=== PATIENT | female | born 1985 | race Caucasian/White ===

== ENCOUNTER 2020-01-23 23:04 | Emergency (ER) | payer OTHER, SELFPAY ==
--- NOTE | ~2020-01-23 | XR_ITS ---
XR finger 2nd RT min 2V 01/23/2020 23:37 INDICATION: Laceration of the second finger PROCEDURE: 4 views right second finger COMPARISON: No prior studies for comparison. FINDINGS: Fracture, dislocation or subluxation is not identified. The soft tissues appear within norm al limits. No foreign bodies are identified. IMPRESSION: 1: NO ACUTE BONE OR JOINT ABNORMALITY IDENTIFIED. Reviewed, dictated and finalized at location A.
[2020-01-23 23:07] VITALS: BP 118/87; PULSE 89; RESP 19; TEMP 36.3; O2SAT 99
--- NOTE | 2020-01-23 23:41 | ED.WOUNDLAC ---
HPI - Wound/Laceration General Chief Complaint: Wound/Laceration Stated Complaint: Laceration Time Seen by Provider: 01/23/20 23:22 Source: patient Mode of arrival: ambulatory Limitations: no limitations History of Present Illness HPI narrative: This patient is a 35 year old female who presents for evaluation of right index finger laceration. She accidentally closed her finger a door and it caused 2 wounds to her finger. She took 1 hydrocodone before coming. She is unsure of her tetanus. She has pain with movement. Related Data Allergies Allergy/AdvReac Type Severity Reaction Status Date / Time ibuprofen Allergy Severe rash Verified 09/07/17 12:30 shellfish derived Allergy Unknown Hives / Verified 09/07/17 12:30 Red Face Review of Systems Review of Systems: All systems reviewed & are unremarkable except as noted in HPI and below PMFSH Past Medical History Medical History (Updated 01/24/20 @ 00:51 by Anna Beckett MD) Patient denies medical problems Social History Social History (Updated 01/24/20 @ 00:46 by Anna Beckett MD) Smoking status: Current every day smoker Exam Const: General: no acute distress and alert Orientation/consciousness: patient oriented x3 Resp: Effort & Inspection: normal respiratory effort Neuro: General: patient oriented x3 and moves all extremities Extrem: Other: right index finger with 1 cm laceration mid finger with fat tissue exposed on palmar aspect with 0.5 cm volar Psych: Mental Status: mental status grossly normal Affect: normal affect Course Vital Signs Vital signs: Vital Signs Temperature 97.4 F L 01/23/20 23:07 Pulse Rate 89 01/23/20 23:07 Respiratory Rate 19 01/23/20 23:07 Blood Pressure 118/87 01/23/20 23:07 Pulse Oximetry 99 01/23/20 23:07 Temperature 97.4 F L 01/23/20 23:07 Pulse Rate 89 01/23/20 23:07 Respiratory Rate 19 01/23/20 23:07 Blood Pressure 118/87 01/23/20 23:07 Pulse Oximetry 99 01/23/20 23:07 Procedures Laceration Laceration 1: Date: 01/24/20 Time: 00:47 Site: hand (finger index ) Side (If applicable): right Size (cm): 1 Description: linear Depth: simple, single layer Local Anesthetic: bupivacaine 0.25% (digital nerve block) Amount of anesthesia used (mL): 2 Pre-repair: irrigated ====== Skin Level ====== Skin layer closed with: prolene Size (cm): 4-0 Number of sutures: 2 Technique: horizontal mattress ====== Subcutaneous Layer ====== ====== Muscle Layer ====== ====== Tendon Layer ====== Laceration 2: Date: 01/24/20 Time: 00:48 Site: hand (finger index) Side (If applicable): right Size (cm): 0.5 Description: linear Depth: simple, single layer Pre-repair: irrigated ====== Skin Level ====== Skin layer closed with: prolene Size (cm): 4-0 Number of sutures: 2 Technique: simple, interrupted and horizontal mattress ====== Subcutaneous Layer ====== ====== Muscle Layer ====== ====== Tendon Layer ====== MDM - Wound/Laceration Imaging Data Radiologist's impression: ITS Impressions Finger X-Ray 01/23/20 23:39 IMPRESSION: 1: NO ACUTE BONE OR JOINT ABNORMALITY IDENTIFIED. Discharge Plan Discharge Clinical Impression: Laceration of right index finger Qualifiers: Encounter type: initial encounter Damage to nail status: without damage Foreign body presence: without foreign body Qualified Code(s): S61.210A - Laceration without foreign body of right index finger without damage to nail, initial encounter Patient Disposition: Home, Self-Care Condition: Stable Instructions: Care For Your Stitches (ED), Laceration (ED) Additional Instructions: Today you were seen for an couple of lacerations. You will need keep hand clean and dry. Watch for si
[2020-01-23] MEDS: TETANUS,DIPHTHERIA,AC PERTUSSIS ADULT (0.5 ML) BOOSTRIX IM (23:53)
[2020-01-24 01:13] VITALS: BP 120/70; PULSE 70; RESP 18; O2SAT 98
== END 2020-01-24 01:14 | disposition home or self-care (01) ==
PROVIDERS: Emergency Provider General Practice; PCP Family Medicine
DX: S61.210A Laceration without foreign body of right index finger without damage to nail, initial encounter (principal); Z23 Encounter for immunization; F17.200 Nicotine dependence, unspecified, uncomplicated; W23.0XXA Caught, crushed, jammed, or pinched between moving objects, initial encounter
CPT/HCPCS: 12001; 73140; 90471; 90715; 99283

== ENCOUNTER 2020-08-18 17:39 | Emergency (ER) | payer OTHER, SELFPAY ==
--- NOTE | ~2020-08-18 | XR_ITS ---
EXAMINATION: XR chest 2V EXAM DATE: 08/18/2020 19:09 INDICATION: Left-sided chest pain. Toothache. TECHNIQUE: Frontal and lateral projections of the chest obtained and reviewed. Comparison is made to prior examination from 09/07/2017. FINDINGS: The lungs are clear. There are no pleural effusions. The cardiomediastinal silhouette is within normal limits. There is no pneumothorax suspected. The bones and soft tissues are unremarkab le. IMPRESSION: No acute cardiopulmonary findings. Reviewed, dictated and finalized at location A. [facility]
[2020-08-18 17:41] VITALS: BP 123/83; PULSE 77; RESP 18; TEMP 36.5; O2SAT 94
--- NOTE | 2020-08-18 17:48 | ECG_ITS ---
Measurements Intervals [place] Rate: 67 P: 12 VA: 130 QRS: -26 QRSD: 112 T: 6 QT: 365 QTc: 387 Interpretive Statements SINUS RHYTHM INCOMPLETE RIGHT BUNDLE BRANCH BLOCK DELAYED PRECORDIAL R/S TRANSITION BORDERLINE T WAVE ABNORMALITY- INFERIOR LEADS BASELINE ARTIFACT- I, II, AVR BORDERLINE ECG Electronically Signed On 08-18-2020 21:37:41 [employer]IE[employer] by Brannon Sno D.O.
[2020-08-18 18:07] LABS: Basophils Percent Auto 0.3 % (0.2-1.2); Eosinophils Absolute Auto 0.1 K/mm3 (0-0.3); Eosinophils Percent Auto 0.8 % (0-4.4); Hematocrit 42.2 % (37.0-47.0); Hemoglobin 14.4 g/dL (12.0-15.0); Immature Granulocyte Absolute 0.03 K/mm3 (0.00-0.031); Immature Granulocyte Percent A 0.4 % (0-0.5); Lymphocytes Absolute Auto 2.76 K/mm3 (0.9-3.2); Lymphocytes Percent Auto 37.6 % (18.3-44.2); Mean Corpuscular HGB Conc 34.1 g/dl (32-36); Mean Corpuscular Hemoglobin 29.3 pg (26-34); Mean Corpuscular Volume 85.9 fl (80-100); Mean Platelet Volume 8.7 fl (7.4-10.4); Monocytes Absolute Auto 0.5 K/mm3 (0.1-0.6); Monocytes Percent Auto 7.1 % (2.6-8.5); Neutrophils Percent Auto 53.8 % (45.5-73.1); Platelet Count Result 275 k/mm3 (150-375); Red Blood Count 4.91 M/mm3 (4.2-5.4); Red Cell Distribution Width 12.1 % (11.5-14.5); White Blood Count 7.3 K/mm3 (4.5-10.0)
[2020-08-18 18:16] LABS: INR 0.9; Prothrombin Time 12.9 Seconds (11.1-14.7)
[2020-08-18 18:17] LABS: Partial Thromboplastin Time 29.8 SECONDS (22.3-36.8)
[2020-08-18 18:18] LABS: Anion Gap 9 mmol/L (8-16); Blood Urea Nitrogen 10 mg/dL (7-17); Calcium 9.7 mg/dL (8.4-10.2); Carbon Dioxide 28 mmol/L (22-30); Chloride 102 mmol/L (98-107); Estimated CRCL calculation 85 ml/min; Estimated Glomerular Filt Rate > 60; Glucose 112 mg/dL (65-105); Potassium 3.8 mmol/L (3.4-5.0); Sodium 139 mmol/L (137-145)
[2020-08-18 18:30] LABS: Troponin I < 0.012 ng/mL (0.000-0.034)
[2020-08-18] MEDS: diazePAM INJ (*CRX) 10 MG/2 ML SYRINGE 5 MG IV PUSH (18:43)
--- NOTE | 2020-08-18 18:59 | ED.CHESTPAIN ---
HPI - Chest Pain General Chief Complaint: Chest Pain Stated Complaint: toothache shoulder pain and sob Time Seen by Provider: 08/18/20 17:58 Source: patient and family Mode of arrival: ambulatory Limitations: no limitations History of Present Illness HPI narrative: This is a 35 year old female that presents to the ER for toothache since this morning. Reports the pain has now radiated into her head and ear. Also reports on her way to the ER she started to develop left sided chest pain. Denies fever, cough, or shortness of breath. Related Data Allergies Allergy/AdvReac Type Severity Reaction Status Date / Time ibuprofen Allergy Severe rash Verified 09/07/17 12:30 shellfish derived Allergy Unknown Hives / Verified 09/07/17 12:30 Red Face Review of Systems Review of Systems: Narrative: CONSTITUTIONAL: Denies fever ENT: Reports dentalgia CARDIOVASCULAR: Reports chest pain. Denies edema. RESPIRATORY: Denies cough or dyspnea. All systems reviewed & are unremarkable except as noted in HPI and below PMFSH Past Medical History Medical History (Updated 08/18/20 @ 20:01 by Becky Rodriguez PA-C) Patient denies medical problems Surgical History Surgical History (Updated 08/18/20 @ 19:02 by Becky Rodriguez PA-C) History of appendectomy Social History Social History (Updated 01/24/20 @ 00:46 by Anna Beckett MD) Smoking status: Current every day smoker Exam Narrative: Exam Narrative: GENERAL: Well-appearing, well-nourished, and in no acute distress. HEAD: Normocephalic, atraumatic. EYES: PERRLA and EOMI. ENT: Nares clear, no rhinorrhea or epistaxis. Mucous membranes moist. Oropharynx without tonsillar hypertrophy exudate or other lesions. Bilateral TMs pearly mccrary non-bulging. Tooth number 14 tender to palpation, no surrounding erythema or edema to suggest abscess NECK: Supple. No adenopathy or masses. Tender to palpation of left trapezius musculature CHEST: Clear to auscultation. No respiratory distress. No wheezes rales or rhonchi HEART: Regular rate and rhythm. No murmur heard. Normal peripheral pulses. EXTREMITIES: Normal range of motion. No edema. SKIN: Warm, dry, no rash. NEURO: No focal deficits. Alert and oriented x3. PSYCH: Normal mood and affect Course Vital Signs Vital signs: Vital Signs Temperature 97.7 F 08/18/20 17:41 Pulse Rate 77 08/18/20 17:41 Respiratory Rate 18 08/18/20 17:41 Blood Pressure 123/83 08/18/20 17:41 Pulse Oximetry 94 08/18/20 17:41 Temperature 97.7 F 08/18/20 17:41 Pulse Rate 82 08/18/20 19:16 Respiratory Rate 18 08/18/20 17:41 Blood Pressure 123/83 08/18/20 17:41 Pulse Oximetry 94 08/18/20 17:41 MDM - Chest Pain MDM Narrative Medical decision making narrative: Patient presents to the emergency department for toothache. Was reporting the pain started radiating into her shoulders and then into her chest. Reports relief of pain with Valium. She is afebrile and nontoxic-appearing. Vitals are normal. CBC and metabolic panel without concerning findings. EKG is without concerning changes and baseline troponin is negative. Chest x-ray is clear. Patient's heart score is a 1. Pain in the chest likely more musculoskeletal in nature. Patient will be started on antibiotics for dental infection and was instructed to follow-up with the dentist. She was given warnings to return to the ER. Was also instructed to follow-up with a primary doctor Lab Data Attestation: I reviewed the patient's lab results. Result diagrams: 08/18/20 18:01 08/18/20 18:01 Labs: Lab Results 08/18/20 08/18/20 08/18/20 Range/Units 18:01 18:01 18:01 WBC 7.3 (4.5-10.0) K/mm3 RBC 4.91 (4.2-5.4) M/mm3 Hgb 14.4 (12.0-15.0) g/dL Hct 42.2 (37.0-47.0) % MCV 85.9 (80-100) fl MCH 29.3 (26-34) pg MCHC 34.1 (32-36) g/dl RDW 12.1 (11.5-14.5) % Plt Count 275 (150-375) k/mm3 MPV 8.7 (7.4-10.4
[2020-08-18 19:16] VITALS: PULSE 82
[2020-08-18 20:10] VITALS: BP 142/68; PULSE 85; RESP 17; O2SAT 99
== END 2020-08-18 20:10 | disposition home or self-care (01) ==
PROVIDERS: Emergency Medicine; Emergency Provider Emergency Medicine
DX: K08.89 Other specified disorders of teeth and supporting structures (principal); R07.89 Other chest pain; I45.10 Unspecified right bundle-branch block; R94.31 Abnormal electrocardiogram [ECG] [EKG]
CPT/HCPCS: 36415; 71046; 80048; 84484; 85025; 85610; 85730; 93005; 96374; 99284; J3360

== ENCOUNTER 2021-02-18 16:26 | Emergency (ER) | payer OTHER, SELFPAY ==
[2021-02-18 16:37] VITALS: BP 102/72; PULSE 78; RESP 20; TEMP 36.4; O2SAT 100
[2021-02-18 16:42] VITALS: BP 102/72; PULSE 78; RESP 20; TEMP 36.4; O2SAT 100
--- NOTE | 2021-02-18 16:55 | ED.DENTAL ---
HPI - Dental/Oral General Chief complaint: Dental/Oral Stated complaint: tooth pain Time Seen by Provider: 02/18/21 16:55 Source: patient and RN notes reviewed Mode of arrival: ambulatory Limitations: no limitations History of Present Illness HPI Narrative: 36-year-old female presents to the [facility] with complaints of dental pain. Patient states that her right lower posterior molar pain started and states it feels like there is a lump in there on Thursday. Took 4 doses of Augmentin she had leftover . Made an appointment with [facility] in [place] for April 06 but states she cannot take the pain anymore. Has tried Tylenol due to her reaction to ibuprofen. Related Data Home Medications Medication Instructions Recorded Confirmed No Home Medications 02/18/21 02/18/21 Allergies Allergy/AdvReac Type Severity Reaction Status Date / Time ibuprofen Allergy Severe rash Verified 02/18/21 16:40 shellfish derived Allergy Unknown Hives / Verified 02/18/21 16:40 Red Face Review of Systems Review of Systems: All systems reviewed & are unremarkable except as noted in HPI and below Constitutional: Constitutional: Reports no additional constitutional complaints, Denies chills and Denies fever(s) Eyes: Eyes: Reports no additional eye complaints ENT: Reports as per HPI Comments: Right lower dental pain posterior Cardiovascular: Cardiovascular: Reports no additional cardiovascular complaints and Denies chest pain Respiratory: Respiratory: Reports no additional respiratory complaints and Denies cough Gastrointestinal: Gastrointestinal: Reports no additional gastrointestinal complaints Genitourinary: Genitourinary: Reports no additional female genitourinary complaints Musculoskeletal: Musculoskeletal: Reports no additional musculoskeletal complaints Integumentary/Breasts: Skin/Breast: Reports system reviewed and no additional complaints, except as docu Neurologic: Reports system reviewed and no additional complaints, except as documented Psychiatric: Psychiatric: Reports no additional psychiatric complaints Allergic/Immunologic: Allergic/Immunologic: Reports no additional allergic/immunologic complaints [facility] Past Medical History Medical History Patient denies medical problems Surgical History Surgical History History of appendectomy Social History Social History Smoking status: Current every day smoker Comments At the time of my signature, I reviewed and agree with the nursing past medical, surgical, social, and family history. There is no relevant family history pertinent to the patient complaint. Exam Const: Nutritional Appearance: well nourished Orientation/consciousness: patient oriented x3 HENMT: Head: normal to inspection Teeth image: 1. Pain minor swelling tenderness with palpation to this area. Throat: posterior oropharynx normal, tonsils normal and uvula midline Eyes: Conjunctivae: conjunctivae normal Pupils: Equal, round and reactive pupils present Neck: Neck: normal visual inspection, no lymphadenopathy and no meningeal signs Chest: Chest palpation & inspection: normal inspection of the chest Resp: Effort & Inspection: normal respiratory effort Auscultation: clear to auscultation bilaterally Cardio: Rate: regular rate Rhythm: regular rhythm : General: Yes no CVA tenderness Back/Spine/Pelvis: Back: no CVA tenderness Skin: General skin exam: normal color Rashes: no rashes Wounds: no wounds Neuro: General: patient oriented x3, moves all extremities, no meningeal signs and no focal motor deficits Speech: normal speech Gait exam (Neuro): Normal gait present Extrem: General: normal to inspection and no pedal edema Psych: Appearance: grossly normal and well kempt Mental Status: mental status grossly normal Af
== END 2021-02-18 17:12 | disposition home or self-care (01) ==
PROVIDERS: Emergency Provider Nurse Practitioner
DX: K08.89 Other specified disorders of teeth and supporting structures (principal)
CPT/HCPCS: 99213; G0463

== ENCOUNTER 2021-05-30 15:31 | Emergency (ER) | payer OTHER, SELFPAY ==
[2021-05-30 15:52] VITALS: BP 141/92; PULSE 62; RESP 20; TEMP 37.1; O2SAT 99
--- NOTE | 2021-05-30 16:26 | ED.DENTAL ---
HPI - Dental/Oral General Chief complaint: Dental/Oral Stated complaint: toothache Source: patient and RN notes reviewed Limitations: no limitations History of Present Illness HPI Narrative: The patient, previously mostly healthy non-smoker/occasional drinker, presents with left lower tooth ache. Patient states she has a prior fracture to the affected tooth; now she has a couple day history of left sided upper pain. Symptoms are mild, worse eating; no fever, hoarseness, trismus, visible swelling, pharynx/tonsil pain. Related Data Home Medications Medication Instructions Recorded Confirmed sertraline 50 mg PO DAILY 05/30/21 05/30/21 Allergies Allergy/AdvReac Type Severity Reaction Status Date / Time ibuprofen [From Motrin] Allergy Hives Verified 05/30/21 16:33 Review of Systems Review of Systems: General/Constitutional: No weight loss,fever Eyes: N0: Redness,discharge Ears/Nose/Throat: No: Epistaxis,ear discharge Respiratory: Denies: Hemoptysis Gastrointestinal: No Vomiting, Bleeding-rectal Skin: No Lumps, eruption Neurologic: No Focal Weakness,Sz Hematologic: Denies: Petechiae/Purpura Psychiatric: No: Suicida ideationl All Other Systems: Reviewed and Negative [facility] Family History Family History (Updated 01/25/16 @ 23:19 by DOCTOR UNKNOWN) Mother Family history of malignant neoplasm of breast in first degree relative Social History Social History Smoking status: Never smoker Alcohol intake: current Comments At time of signature, agree with nursing past medical, surgical, social and family history. There is no relevant family history pertinent to the presenting complaint Exam Narrative: General Appearance: Well appearing, Well nourished, Obese EYE: PERRLA, EOMI, Conjunctiva clear Ears: External ear normal, Auditory canal normal Nose: Normal nose Mouth/Throat: Normal appearing (witout lower jaw swelling), Normal lips, MM moist, Uvula midline (scattered dental caries and fillings,, with rare fracture) Neck: Supple, No adenopathy Respiratory: Airway patent, No respiratory distress, Clear to auscultation Cardiovascular: RRR Musculoskeletal: Full ROM, Non tender, Normal strength Spine/Back: Normal ROM Skin: Warm, Dry, Normal color Neurological: A&O x3, Speech clear, CN II-XII intact Psychiatric: Normal mood, Normal affect Course Vital Signs Vital signs: Vital Signs Temperature 98.7 F 05/30/21 15:52 Pulse Rate 62 05/30/21 15:52 Respiratory Rate 20 05/30/21 15:52 Blood Pressure 141/92 H 05/30/21 15:52 Pulse Oximetry 99 05/30/21 15:52 Temperature 98.7 F 05/30/21 15:52 Pulse Rate 62 05/30/21 15:52 Respiratory Rate 20 05/30/21 15:52 Blood Pressure 141/92 H 05/30/21 15:52 Pulse Oximetry 99 05/30/21 15:52 Discharge Plan Discharge Clinical Impression: Gingivitis, Toothache Patient Disposition: Home, Self-Care Condition: Stable Instructions: Gingivitis (ED), Toothache (ED) Prescriptions: New amoxicillin 875 mg tablet 875 mg PO Q12H Qty: 14 RF: 0 lidocaine HCl [Lidocaine Viscous] 2 % solution 5 ml MUCOUS MEM QID PRN (Reason: pain) Qty: 100 RF: 2 tramadol 50 mg tablet 50 - 75 mg PO BID PRN (Reason: pain) Qty: 20 RF: 0 No Action sertraline 50 mg tablet 50 mg PO DAILY RF: 0 Follow-up/Referrals: Frankie,MD Carlos [Primary Care Provider] - Stand Alone Forms: Work/School Release IP
== END 2021-05-30 16:35 | disposition home or self-care (01) ==
PROVIDERS: Emergency Provider Emergency Medicine; PCP Family Medicine
DX: K05.10 Chronic gingivitis, plaque induced (principal)
CPT/HCPCS: 99203; G0463

== ENCOUNTER 2022-10-11 08:23 | Emergency (ER) | payer OTHER, SELFPAY ==
--- NOTE | 2022-10-11 08:34 | ED.GENADULT ---
HPI - General Adult General Chief complaint: Upper Respiratory Infection Stated complaint: Sore Throat/Left Ear Irritation/Diarrhea Source: patient and RN notes reviewed History of Present Illness HPI narrative: 37-year-old female presents to urgent care with complaints of a sore throat, left ear pain, vomiting, and diarrhea since last night. patient reports chills. States she vomited 4 times earlier this morning. Denies any fevers, abdominal pain, chest pain, or shortness of breath. Patient states she is now able to keep fluids down. Some parts of this dictation were generated by voice recognition software and may contain typographical and/or grammatical inaccuracies. Related Data Home Medications Medication Instructions Recorded Confirmed buspirone 10 mg tablet 10 mg PO DAILY 10/11/22 10/11/22 ergocalciferol (vitamin D2) 1,250 1,250 mcg PO DAILY 10/11/22 10/11/22 mcg (50,000 unit) capsule trazodone 50 mg tablet 50 mg PO DAILY 10/11/22 10/11/22 Allergies Allergy/AdvReac Type Severity Reaction Status Date / Time ibuprofen Allergy Severe rash Verified 10/11/22 08:36 shellfish derived Allergy Unknown Hives / Verified 10/11/22 08:40 Red Face Review of Systems Review of Systems: Pertinent positives and pertinent negatives per HPI. [facility] Past Medical History Medical History Patient denies medical problems Surgical History Surgical History History of appendectomy Family History Family History (System 09/05/21 @ 11:54 by [place]) Mother Family history of malignant neoplasm of breast in first degree relative Social History Social History (System 09/05/21 @ 11:54 by [place]) Smoking status: Current every day smoker Alcohol intake: current Comments At the time of my signature, I reviewed and agree with the nursing past medical, surgical, social, and family history. There is no relevant family history pertinent to the patient complaint. Exam Narrative: GENERAL: This is a well-nourished, well-developed patient, in no apparent distress. HEAD: normocephalic, atraumatic. EYES: Sclera clear/white. Vision is grossly intact. EARS: External ears normal, auditory canals clear and without drainage, TMs normal without perforation. Hearing grossly intact. NOSE: External nose normal with no obvious nasal discharge, nares without redness, no rhinorrhea. THROAT: Mucous membranes moist, posterior pharynx erythemic. No exudate noted. NECK: Neck supple, non-tender without lymphadenopathy, masses or thyromegaly. CARDIOVASCULAR: Regular rate RESPIRATORY: Clear to auscultation. Breath sounds equal bilaterally. No wheezes, rales, or rhonchi. GASTROINTESTINAL: Abdomen soft, non-tender, nondistended. Bowel sounds are active. No hepato-splenomegaly, or palpable masses. No guarding. SKIN: warm, intact with no suspicious lesions or rash, good texture and turgor. NEURO: awake, alert, and oriented to person, place and time. There were no obvious focal neurologic abnormalities. Course Course Level of Care: Express Care Visit Vital Signs Vital signs: Vital Signs Temperature 97.7 F 10/11/22 08:39 Pulse Rate 101 H 10/11/22 08:39 Respiratory Rate 14 10/11/22 08:39 Blood Pressure 133/90 10/11/22 08:39 Pulse Oximetry 100 10/11/22 08:39 Oxygen Delivery Room Air 10/11/22 08:39 Temperature 97.7 F 10/11/22 08:39 Pulse Rate 101 H 10/11/22 08:39 Respiratory Rate 14 10/11/22 08:39 Blood Pressure 133/90 10/11/22 08:39 Pulse Oximetry 100 10/11/22 08:39 Oxygen Delivery Room Air 10/11/22 08:39 reviewed Medical Decision Making MDM Narrative Medical decision making narrative: After 24 hours on antibiotics throw tooth brush away and start using a new one. Increase your Vitamin C. Do not share drinks. Take Motrin alternating with Tylenol for pain and/or fever a
[2022-10-11 08:39] VITALS: BP 133/90; PULSE 101; RESP 14; TEMP 36.5; O2SAT 100
== END 2022-10-11 09:13 | disposition home or self-care (01) ==
PROVIDERS: Emergency Provider Nurse Practitioner Family
DX: K52.9 Noninfective gastroenteritis and colitis, unspecified (principal); J02.0 Streptococcal pharyngitis; F17.200 Nicotine dependence, unspecified, uncomplicated
CPT/HCPCS: 87804; 87880; 99213; G0463

== ENCOUNTER 2022-10-28 10:17 | Outpatient (CLI) | payer OTHER, SELFPAY ==
--- NOTE | ~2022-10-28 | XR_ITS ---
Thoracic spine: Clinical Indication: Back pain AP and lateral views were performed. No fracture is seen. There is normal alignment of the vertebrae. The intervertebral disc spaces appe ar normal. Paravertebral soft tissues appear normal. Impression: No significant abnormalities noted. Reviewed, dictated and finalized at [facility]. Impression: No significant abnormalities noted.
--- NOTE | ~2022-10-28 | XR_ITS ---
Lumbosacral Spine: AP, oblique, and lateral views Clinical History: Pain Findings: The normal lordotic curve is maintained. The vertebral bodies and posterior elements are i ntact. The intervertebral disc spaces are preserved. The sacroiliac joints are normally outlined. Impression: No significant abnormality. Reviewed, dictated and finalized at [facility]. Impression: No significant abnormality.
== END 2022-10-28 10:18 | disposition home or self-care (01) ==
LOC: ANHIMG 10:25
PROVIDERS: PCP Family Medicine; Visit Provider Family Medicine
DX: M54.6 Pain in thoracic spine (principal); M54.50 Low back pain, unspecified
CPT/HCPCS: 72070; 72110

== ENCOUNTER 2023-07-05 18:41 | Emergency (ER) | payer OTHER, SELFPAY ==
--- NOTE | ~2023-07-05 | XR_ITS ---
EXAMINATION: XR wrist LT min 3V DATE: 07/05/2023 19:22 INDICATION: Left wrist pain TECHNIQUE: Posteroanterior, ulnar deviation, oblique, and lateral views of the left wrist were obtain ed. COMPARISON: None available FINDINGS: There is congenital deformity of the hand. A partially formed first metacarpal is noted. Roman ne alignment is normal. There is no fracture. There is mild soft tissue swelling of the wrist. IMPRESSION: 1. Mild soft tissue swelling of the wrist without acute osseous abnormality. Reviewed, dictated and finalized at location [facility]
[2023-07-05 18:58] VITALS: BP 126/80; PULSE 98; RESP 18; TEMP 36.7; O2SAT 98
--- NOTE | 2023-07-05 19:00 | ED.EXTPRO ---
HPI - Extremity Problem General Chief complaint: Extremity Injury, Lower Stated complaint: Right Knee/Left Hand Pain Time Seen by Provider: 07/05/23 19:01 Source: patient and RN notes reviewed Mode of arrival: ambulatory Limitations: no limitations History of Present Illness HPI Narrative: 38-year-old female presents with concern for right knee pain and left hand pain. She reports she was at work when she was accidentally pushed in to a table, hitting her knee and getting her left hand pinned between the chair and table. She reports knee pain that worsens with weight-bearing, popping sensation. She denies swelling, bruising, redness, warmth. She reports pain in the left hand/wrist. She reports she took Tylenol, used ice. She is allergic to ibuprofen MD Complaint: extremity pain Related Data Home Medications Medication Instructions Recorded Confirmed ergocalciferol (vitamin D2) 1,250 1,250 mcg PO DAILY 07/05/23 07/05/23 mcg (50,000 unit) capsule trazodone 50 mg tablet 50 mg PO QHS 07/05/23 07/05/23 Allergies Allergy/AdvReac Type Severity Reaction Status Date / Time ibuprofen Allergy Severe rash Verified 07/05/23 19:06 shellfish derived Allergy Unknown Hives / Verified 07/05/23 19:06 Red Face Review of Systems Review of Systems: CONSTITUTIONAL: Denies malaise, chills, sweats, or fever. SKIN: Denies rash or itching, open skin, laceration, abrasion, redness, warmth, swelling. MUSCULOSKELETAL: Reports left wrist pain, right knee pain NEUROLOGIC: Denies numbness, weakness All systems reviewed & are unremarkable except as noted in HPI and below PMFSH Past Medical History Medical History Patient denies medical problems Surgical History Surgical History History of appendectomy Family History Family History (System 09/05/21 @ 11:54 by Belle Fontaine) Mother Family history of malignant neoplasm of breast in first degree relative Social History Social History (System 09/05/21 @ 11:54 by Belle Fontaine) Smoking status: Current every day smoker Alcohol intake: current Comments At time of signature, agree with nursing past medical, surgical, social and family history. There is no relevant family history pertinent to the presenting complaint Exam Narrative: GENERAL: Well-appearing, well-nourished, and in no acute distress. HEAD: Normocephalic, atraumatic. EYES: PERRLA, conjunctivae clear NECK: Supple. CHEST: Speaks in full sentences. No respiratory distress. HEART: Regular rate and rhythm. Normal and equal peripheral pulses. EXTREMITIES: Right knee has normal strength and sensation, grossly normal range of motion. No edema or ecchymosis. Normal sensation with sensitivity to light touch and pain. No point tenderness. No open wounds, no skin tenting, no devitalized tissue or atrophy, no trophic changes, no obvious deformity, alignment normal, nearby joints and structures intact. Distal pulses palpable and equal bilaterally, skin warm, dry, pink. Capillary refill less than 3 seconds. Patient has a congenital deformity of the left hand/wrist. She has some mobility in the wrist. She reports pain when she flexes. She denies swelling, redness, warmth, bruising, open skin SKIN: Warm, dry, no rash. NEURO: Alert and oriented x3. PSYCH: Normal mood and affect Course Course Emergency Course: Patient is aware of diagnosis, understands and agrees to treatment plan. Anticipatory guidance given. Patient agrees to follow-up as directed and is aware of reasons to seek care at the emergency department. Portions of this record may have been created with voice recognition software Level of Care: Express Care Visit Vital Signs Vital signs: Vital Signs Temperature 98.1 F 07/05/23 18:58 Pulse Rate 98 07/05/23 18:58 Respiratory Rate 18 07/05/23 18:58 Blood Pressure 126/80 07/05/23 18:58 Puls
== END 2023-07-05 19:44 | disposition home or self-care (01) ==
PROVIDERS: Emergency Provider Nurse Practitioner; PCP Family Medicine
DX: S80.01XA Contusion of right knee, initial encounter (principal); M25.532 Pain in left wrist; F17.200 Nicotine dependence, unspecified, uncomplicated; Z79.899 Other long term (current) drug therapy; W51.XXXA Accidental striking against or bumped into by another person, initial encounter; Y99.0 Civilian activity done for income or pay
CPT/HCPCS: 73110; 99213; G0463

== ENCOUNTER 2023-10-27 18:20 | Emergency (ER) | payer OTHER, SELFPAY ==
[2023-10-27 18:26] VITALS: BP 108/71; PULSE 69; RESP 16; TEMP 36.4; O2SAT 99
--- NOTE | 2023-10-27 18:28 | ED.SKABFB ---
HPI - Skin/Abscess/Foreign Bdy General Chief complaint: Skin/Abscess/Foreign Body Stated complaint: Rash Time Seen by Provider: 10/27/23 18:56 Source: patient and RN notes reviewed Mode of arrival: ambulatory Limitations: no limitations History of Present Illness HPI narrative: 38 year old female presents with concern for rash on her chest and abdomen after [place] from the beach. She reports that she got the rash after laying chest down in the same hand. Reports his itchy. Reports that is not spread home. MD complaint: rash Related Data Home Medications Medication Instructions Recorded Confirmed trazodone 50 mg tablet 50 mg PO QHS 07/05/23 10/27/23 escitalopram oxalate 10 mg tablet 10 mg PO DAILY 10/27/23 10/27/23 Allergies Allergy/AdvReac Type Severity Reaction Status Date / Time ibuprofen Allergy Intermediate rash Verified 10/27/23 18:27 shellfish derived Allergy Intermediate Hives / Verified 10/27/23 18:27 Red Face Review of Systems Review of Systems: CONSTITUTIONAL: Denies malaise, chills, sweats, or fever. EYES: Denies redness, or discharge. ENT: Denies rhinorrhea, congestion, swollen lips, swollen tongue CARDIOVASCULAR: Denies chest pain, palpitations, or edema. RESPIRATORY: Denies cough or dyspnea. GASTROINTESTINAL: Denies abdominal pain, nausea, vomiting SKIN: Reports itchy rash on her chest and abdomen MUSCULOSKELETAL: Denies joint pain or myalgia. NEUROLOGIC: Denies headache. All systems reviewed & are unremarkable except as noted in HPI and below PMFSH Past Medical History Medical History Patient denies medical problems Surgical History Surgical History History of appendectomy Family History Family History (System 09/05/21 @ 11:54 by Belle Fontaine) Mother Family history of malignant neoplasm of breast in first degree relative Social History Social History (System 09/05/21 @ 11:54 by Belle Fontaine) Smoking status: Current every day smoker Alcohol intake: current Comments At time of signature, agree with nursing past medical, surgical, social and family history. There is no relevant family history pertinent to the presenting complaint Exam Narrative: GENERAL: Well-appearing, well-nourished, and in no acute distress. HEAD: Normocephalic, atraumatic. EYES: PERRLA, conjunctivae clear, and EOMI. ENT: Mucous membranes moist. Oropharynx without edema, erythema or lesions. NECK: Supple. No lymphadenopathy CHEST: Clear to auscultation. No respiratory distress. HEART: Regular rate and rhythm. SKIN: Warm, dry. Erythematous papules noted to the chest and abdomen outside of the swimsuit area NEURO: Alert and oriented x3. PSYCH: Normal mood and affect Course Course Emergency Course: Patient is aware of diagnosis, understands and agrees to treatment plan. Anticipatory guidance given. Patient agrees to follow-up as directed and is aware of reasons to seek care at the emergency department. Portions of this record may have been created with voice recognition software Level of Care: Express Care Visit Vital Signs Vital signs: Reviewed. MDM - Skin/Abscess/Foreign Bdy MDM Narrative Medical decision making narrative: Does not appear at this time to be erythema multiforme, bullous, SJS, TEN; no evidence at this time to suggest RMSF, endocarditis or Lyme disease; patient looks well, nontoxic and is tolerating oral intake; no neurologic signs or symptoms; no headache, photophobia or neck pain; afebrile; appropriate for initial outpatient treatment; discussed the importance of follow-up, patient agrees; question, viral exanthema, contact dermatitis, allergic dermatitis, eczema, urticaria, insect bites. No soft palate or uvula edema, no tongue, lip edema or other mucosal involvement, no respiratory compromise, no stridor, no wheezing, no wheezing, no history of syncope, no hy
== END 2023-10-27 19:14 | disposition home or self-care (01) ==
PROVIDERS: Emergency Provider Nurse Practitioner; PCP Family Medicine
DX: R21 Rash and other nonspecific skin eruption (principal)
CPT/HCPCS: 99213; G0463